=== PATIENT | female | born 1985 | race Caucasian/White ===

== ENCOUNTER 2019-02-20 07:09 | Day surgery (SDC) | payer OTHER ==
[2019-02-19 10:56] LABS: BASOPHILS # (AUTO) 0.1 X10'3 (0-0.2); EOSINOPHILS # (AUTO) 0.1 X10'3 (0-0.9); EOSINOPHILS % (AUTO) 2.6 % (0-6); LYMPHOCYTES # (AUTO) 1.8 X10'3 (1.1-4.8); LYMPHOCYTES % (AUTO) 32.6 % (21-51); MEAN CORPUSCULAR HEMOGLOBIN 31.1 PG (27.0-31.0); MEAN CORPUSCULAR HGB CONC 34.6 g/dL (33.0-36.5); MEAN CORPUSCULAR VOLUME 89.9 FL (78-98); MEAN PLATELET VOLUME 9.4 FL (7.4-10.4); MONOCYTES # (AUTO) 0.4 X10'3 (0-0.9); MONOCYTES % (AUTO) 6.8 % (2-12); NEUTROPHILS # (AUTO) 3.1 X10'3 (1.8-7.7); PRE OP HEMATOCRIT 41.8 % (35.0-45.0); PRE OP HEMOGLOBIN 14.4 g/dL (12.0-16.0); PRE OP PLATELET COUNT 207 X10'3 (140-440); RED BLOOD COUNT 4.64 X10'6 (4.20-5.60); RED CELL DISTRIBUTION WIDTH 13.5 % (11.5-14.5)
[2019-02-19 11:09] LABS: ALBUMIN 3.9 G/DL (3.4-5.0); ALBUMIN/GLOBULIN RATIO 1.1 (1.1-1.5); ALKALINE PHOSPHATASE 55 IU/L (46-116); BLOOD UREA NITROGEN 10 MG/DL (7-18); BUN/CREATININE RATIO 14.7 (6.6-38.0); CALCIUM 8.6 MG/DL (8.5-10.1); CHLORIDE 105 MMOL/L (99-107); CREATININE 0.68 MG/DL (0.40-0.90); PRE OP ALT 17 U/L (30-65); PRE OP ANION GAP 7 (8-16); PRE OP AST 11 U/L (10-37); PRE OP BILIRUB, TOTAL 0.4 MG/DL (0.0-1.0); PRE OP GLUCOSE 92 MG/DL (70-104); PRE OP POTASSIUM 4.4 MMOL/L (3.4-5.1); PRE OP SODIUM 139 MMOL/L (135-145); TOTAL CARBON DIOXIDE 27.3 MMOL/L (24-32); TOTAL PROTEIN 7.3 G/DL (6.4-8.2); eGFR > 90 ML/MIN
[2019-02-19 11:14] LABS: HCG SERUM QL NEGATIVE
[2019-02-20] VITALS (12 sets, daily range): BP systolic 108–137; BP diastolic 64–91
[~2019-02-20] VITALS: Ht 167.6 cm; Wt 85.5 kg
[~2019-02-20 07:09] MED LIST: NO HOME MEDS
[2019-02-20] MEDS ORDERED: albuterol 2.5 MG/3 ML nebule NEB ONE (07:15)
[2019-02-20] MEDS ORDERED: ceFAZolin 2gm in dextrose, iso 100 ML IV ONE (07:15)
[2019-02-20] MEDS ORDERED: famotidine 20mg tablet PO ONE (07:15)
[2019-02-20] MEDS ORDERED: ringers solution, lacted 1,000 ML IV SCH ×2 (07:15→10:21)
[2019-02-20] MEDS ORDERED: ketorolac trometh. 30mg/ml inj. ONE (09:25)
[2019-02-20] MEDS ORDERED: LIDOcaine 1% 30ml preserv. free vial ONE (09:26)
[2019-02-20] MEDS ORDERED: ROPIVAcaine 0.5% (5mg/ml) 30ml vial ONE (09:26)
[2019-02-20] MEDS ORDERED: BUPIVAcaine/PF 2.5 mg/ml (0.25%) 30ml vial ONE (09:26)
[2019-02-20] MEDS ORDERED: sevoflurane 250ml liquid IH ONE (09:27)
[2019-02-20] MEDS ORDERED: midazolam 2 mg/2 ml injection ONE (09:35)
[2019-02-20] MEDS ORDERED: fentaNYL /PF 50mcg/ml 5ml ampule ONE (09:35)
[2019-02-20] MEDS ORDERED: propofol inj 20 ML IV ONE (10:13)
[2019-02-20] MEDS ORDERED: LIDOcaine 2% (20mg/ml) 5ml vial ONE (10:13)
[2019-02-20] MEDS ORDERED: glycopyrrolate 0.2mg/ml inj ONE (10:14)
[2019-02-20] MEDS ORDERED: dexamethasone sod phosphate 4mg/ml inj. ONE (10:14)
[2019-02-20] MEDS ORDERED: rocuronium 10mg/ml inj IV ONE (10:14)
[2019-02-20] MEDS ORDERED: neostigmine methylsulfate 1 MG/ML 10ml vial ONE (10:14)
[2019-02-20] MEDS ORDERED: ondansetron/PF 4mg/2ml inj ONE (10:14)
[2019-02-20] MEDS ORDERED: proCHLORperazine 10 MG/2 ml inj IV PRN (10:25)
[2019-02-20] MEDS ORDERED: meperidine/PF 25mg/ml syringe IV PRN ×3 (10:25)
[2019-02-20] MEDS ORDERED: ondansetron/PF 4mg/2ml inj IV PRN (10:25)
[2019-02-20] MEDS ORDERED: morphine 4 MG/ML inj SYRINge IV PRN ×2 (10:25)
--- NOTE | 2019-02-20 11:05 | NUR ---
Received from OR via BED , accompanied by Anesthesiologist DR OSORIO and report given by Anesthesiolgist. PATIENT WAKING UP, DENIES PAIN, V/S WNL, NEUROVASCULAR CHECKS INTACT, 20G PIV LUE, SCD ON, 3 BANDAIDS TO LAP SIGHTS OF ABDOMEN CDI.
[2019-02-20] MEDS ORDERED: oxyCODONE/APAP 10/325mg tablet PO ONE (11:15)
--- NOTE | 2019-02-20 12:35 | NUR ---
PATIENT A&OX4, DENIES PAIN, V/S WNL, NEUROVASCULAR CHECKS INTACT, 20G PIV LUE D/C, SCD OFF, 3 BANDAIDS TO LAP SIGHTS OF ABDOMEN CDI.. I HAVE REVIEWED D/C INSTRUCTIONS WITH PATIENT AND FAMILY HAVE VERBALIZED UNDERSTANDING.PATIENT WAS D/C HOME WITH ALL BELONGINGS AND FAMILY GAVE TRANSPORT HOME.
== END 2019-02-20 12:35 | disposition home or self-care (01) ==
LOC: PAS 07:09
PROVIDERS: ATTEND Surgery
DX: K42.9 Umbilical hernia without obstruction or gangrene (principal); Z98.890 Other specified postprocedural states; F17.210 Nicotine dependence, cigarettes, uncomplicated
CPT/HCPCS: 36415; 49652; 64488; 80053; 82948; 84703; 85025; 94640; C1781; J0690; J1100; J1885; J2001; J2175; J2250; J2405; J2704; J2710; J3010; J3490; J7120; J2795

== ENCOUNTER 2019-11-08 11:04 | Emergency (ER) | payer OTHER, SELFPAY ==
[~2019-11-08] VITALS: Ht 167.6 cm; Wt 84.1 kg
[2019-11-08 11:48] LABS: BASOPHILS # (AUTO) 0.1 X10'3 (0-0.2); EOSINOPHILS # (AUTO) 0.1 X10'3 (0-0.9); EOSINOPHILS % (AUTO) 1.9 % (0-6); HEMATOCRIT 41.5 % (35.0-45.0); HEMOGLOBIN 14.8 g/dl (12.0-16.0); LYMPHOCYTES % (AUTO) 30.2 % (21-51); MEAN CORPUSCULAR HEMOGLOBIN 31.6 PG (27.0-31.0); MEAN CORPUSCULAR HGB CONC 35.6 g/dL (33.0-36.5); MEAN CORPUSCULAR VOLUME 88.8 FL (78-98); MEAN PLATELET VOLUME 9.5 FL (7.4-10.4); MONOCYTES # (AUTO) 0.4 X10'3 (0-0.9); MONOCYTES % (AUTO) 5.3 % (2-12); NEUTROPHILS # (AUTO) 4.2 X10'3 (1.8-7.7); NEUTROPHILS % (AUTO) 61.6 % (42-75); PLATELET COUNT 215 X10'3 (140-440); RED BLOOD COUNT 4.67 X10'6 (4.20-5.60); RED CELL DISTRIBUTION WIDTH 13.3 % (11.5-14.5); WHITE BLOOD COUNT 6.8 X10'3 (4.5-11.0)
[2019-11-08 12:01] LABS: ALANINE AMINOTRANSFERASE 19 U/L (12-78); ALBUMIN 4.2 G/DL (3.4-5.0); ALBUMIN/GLOBULIN RATIO 1.4 (1.1-1.5); ALKALINE PHOSPHATASE 58 IU/L (46-116); ANION GAP 7 (8-16); ASPARTATE AMINO TRANSFERASE 12 U/L (10-37); BILIRUBIN,TOTAL 0.5 MG/DL (0.1-1.0); BLOOD UREA NITROGEN 7 MG/DL (7-18); BUN/CREATININE RATIO 10.3 (6.6-38.0); CALCIUM 8.9 MG/DL (8.5-10.1); CHLORIDE 109 MMOL/L (99-107); CREATININE 0.68 MG/DL (0.40-0.90); GLUCOSE 105 MG/DL (70-104); POTASSIUM 3.9 MMOL/L (3.5-5.1); SODIUM 140 MMOL/L (135-145); TOTAL CARBON DIOXIDE 24.1 MMOL/L (24-32); TOTAL PROTEIN 7.3 G/DL (6.4-8.2); eGFR > 90 ML/MIN
[2019-11-08] MEDS ORDERED: metoclopramide 5 mg/ml inj IV ONE (12:25)
[2019-11-08] MEDS ORDERED: MECL-159 PO (13:41)
[2019-11-08 14:03] VITALS: BP 113/47
== END 2019-11-08 14:05 | disposition home or self-care (01) ==
LOC: ER 11:05
DX: R42 Dizziness and giddiness (principal); F17.210 Nicotine dependence, cigarettes, uncomplicated; F12.90 Cannabis use, unspecified, uncomplicated; Z79.899 Other long term (current) drug therapy
CPT/HCPCS: 36415; 70450; 71045; 80053; 84484; 85025; 93005; 96374; 99284; J2765

== ENCOUNTER 2019-12-03 12:08 | Emergency (ER) | payer OTHER ==
[~2019-12-03] VITALS: Ht 167.6 cm; Wt 89.0 kg
[~2019-12-03 12:08] MED LIST changes: +MECL-159 PO
[2019-12-03 12:53] LABS: CLARITY,URINE CLOUDY (Clear); COLOR,URINE ORANGE (Yellow); GLUCOSE, URINE NEGATIVE (Neg); KETONES,URINE >=80 mg/dl (Neg); LEUKOCYTE ESTERASE ,URINE NEGATIVE (Neg); NITRITES, URINE NEGATIVE (Neg); OCCULT BLOOD,URINE LARGE (Neg); PH,URINE 7.5 (4.8-8.0); PROTEIN,URINE 100 mg/dl (Neg); UA COLLECTION TYPE CLN CATCH MIDSTREAM
[2019-12-03 13:02] LABS: URINE HCG NEGATIVE (NEG)
[2019-12-03 13:08] LABS: BACTERIA,URINE FEW /HPF (Neg); SQUAMOUS EPITHELIAL CELL,UR MANY /LPF (FEW); WBC,URINE 0-4 /HPF (0-4)
[2019-12-03 13:09] LABS: MUCUS STRANDS MODERATE /LPF (Neg)
[2019-12-03 13:10] LABS: HYALINE CASTS 0-3 /LPF (NEGATIVE)
[2019-12-03 13:25] LABS: BASOPHILS % (AUTO) 0.2 % (0-1); EOSINOPHILS % (AUTO) 0.1 % (0-6); HEMATOCRIT 43.8 % (35.0-45.0); HEMOGLOBIN 15.1 g/dl (12.0-16.0); LYMPHOCYTES # (AUTO) 0.8 X10'3 (1.1-4.8); LYMPHOCYTES % (AUTO) 4.6 % (21-51); MEAN CORPUSCULAR HEMOGLOBIN 30.9 PG (27.0-31.0); MEAN CORPUSCULAR HGB CONC 34.5 g/dL (33.0-36.5); MEAN CORPUSCULAR VOLUME 89.6 FL (78-98); MEAN PLATELET VOLUME 9.3 FL (7.4-10.4); MONOCYTES # (AUTO) 1.1 X10'3 (0-0.9); MONOCYTES % (AUTO) 6.3 % (2-12); NEUTROPHILS # (AUTO) 15.7 X10'3 (1.8-7.7); NEUTROPHILS % (AUTO) 88.8 % (42-75); PLATELET COUNT 239 X10'3 (140-440); RED BLOOD COUNT 4.89 X10'6 (4.20-5.60); RED CELL DISTRIBUTION WIDTH 13.4 % (11.5-14.5); WHITE BLOOD COUNT 17.7 X10'3 (4.5-11.0)
[2019-12-03 13:49] LABS: ALANINE AMINOTRANSFERASE 16 U/L (12-78); ALBUMIN/GLOBULIN RATIO 0.9 (1.1-1.5); ALKALINE PHOSPHATASE 73 IU/L (46-116); ANION GAP 9 (8-16); ASPARTATE AMINO TRANSFERASE 11 U/L (10-37); BLOOD UREA NITROGEN 8 MG/DL (7-18); BUN/CREATININE RATIO 9.8 (6.6-38.0); CALCIUM 9.1 MG/DL (8.5-10.1); CHLORIDE 101 MMOL/L (99-107); CREATININE 0.82 MG/DL (0.40-0.90); GLUCOSE 124 MG/DL (70-104); POTASSIUM 3.9 MMOL/L (3.5-5.1); SODIUM 138 MMOL/L (135-145); TOTAL CARBON DIOXIDE 27.7 MMOL/L (24-32); TOTAL PROTEIN 8.4 G/DL (6.4-8.2); eGFR 81 ML/MIN
[2019-12-03] MEDS ORDERED: ketorolac tromethamine 15mg/ml inj. IM ONE (15:10)
[2019-12-03] MEDS ORDERED: ondansetron 4mg rapidly disintigrating tab PO ONE (15:10)
[2019-12-03] MEDS ORDERED: normal saline 1000ML IV soln IVB ONE (15:20)
[2019-12-03] MEDS ORDERED: piperacillin/tazo 3.375gm/50ml 50 ML IV ONE (16:00)
[2019-12-03] MEDS ORDERED: metroNIDAZOLE-Flagyl 500mg/NS 100 ML IV ONE (16:00)
[2019-12-03] MEDS ORDERED: L. R1CAP4 PO (16:50)
[2019-12-03] MEDS ORDERED: METR-159 PO (16:50)
[2019-12-03] MEDS ORDERED: SULF1TAB49 PO (16:50)
[2019-12-03 18:21] VITALS: BP 126/80
== END 2019-12-03 18:23 | disposition home or self-care (01) ==
LOC: ER 12:08
DX: K52.9 Noninfective gastroenteritis and colitis, unspecified (principal); N93.9 Abnormal uterine and vaginal bleeding, unspecified; F17.200 Nicotine dependence, unspecified, uncomplicated; Z72.89 Other problems related to lifestyle; F14.90 Cocaine use, unspecified, uncomplicated; Z79.899 Other long term (current) drug therapy
CPT/HCPCS: 36415; 71045; 74176; 76830; 76856; 80053; 81001; 81025; 83605; 84145; 85025; 87040; 96365; 96366; 96368; 99285; J1885; J2543; J3490; J7030